=== PATIENT | male | born 1950 | race Caucasian/White ===

== ENCOUNTER 2020-07-09 08:53 | Inpatient (IN) ==
--- NOTE | 2020-06-16 14:13 | PAT Medication Instructions ---
Medication Instructions Date of Service June 16, 2020 Home Medications aspirin [Aspir-81] 81 mg PO PM atorvastatin 80 mg PO HS citalopram 40 mg PO QAM ezetimibe 10 mg PO HS lisinopril 20 mg PO PM metformin 500 mg PO BID methocarbamol 500 mg PO TID PRN metoprolol succinate 25 mg PO QAM omega-3 fatty acids [Fish Oil Concentrate] 1,000 mg PO QAM omeprazole 20 mg PO HS oxycodone 5 mg PO TID PRN pregabalin 100 mg PO TID quetiapine 25 mg PO BID tramadol 200 mg PO PM STOP taking 2 weeks before surgery omega-3 fatty acids [Fish Oil Concentrate] 1,000 mg PO QAM DO NOT take the morning of surgery metformin 500 mg PO BID methocarbamol 500 mg PO TID PRN Take morning of surgery With a small sip of water, OTHERWISE NOTHING TO EAT OR DRINK AFTER MIDNIGHT: citalopram 40 mg PO QAM metoprolol succinate 25 mg PO QAM oxycodone 5 mg PO TID PRN (okay to take up to 4 hours prior to surgery if needed) pregabalin 100 mg PO TID quetiapine 25 mg PO BID Take evening before surgery aspirin [Aspir-81] 81 mg PO PM atorvastatin 80 mg PO HS ezetimibe 10 mg PO HS lisinopril 20 mg PO PM metformin 500 mg PO BID methocarbamol 500 mg PO TID PRN (if needed) omeprazole 20 mg PO HS oxycodone 5 mg PO TID PRN (if needed) pregabalin 100 mg PO TID quetiapine 25 mg PO BID tramadol 200 mg PO PM Other Notes If you have any questions please call us at [phone] or [phone] or [phone] or [phone]
--- NOTE | 2020-06-17 11:43 | Anesthesiology Consultation ---
Date of Service June 17, 2020 Assessment & Plan (1) Encounter for pre-operative examination: COVID Status: As of 06/17 assessment, patient denies travel to endemic area, known exposure/sick contacts, or symptoms of COVID19. Patient instructed that they and their household members must follow strict social distancing guidelines, wear a mask in public and avoid travel/events/gatherings for 14 days prior to surgery. Preoperative COVID19 testing to be completed prior to surgery per surgeon's arrangements (07/05). Patient made aware to self-isolate as much as possible between COVID testing and surgery. Chart Review Chart Review: Acceptable Risk for Surgery (pending surgeon ordered pcp clearance 06/23 cardio clearance 07/01) and Patient NOT seen in Pre Admission Testing Teaching & Discussion Instructed NPO after midnight before surgery, except medications with 15 cc of water. Medication instructions provided according to the PAT guidelines. History Surgery Operation Date: 07/09/20 10:35 Proposed Procedures p L2-L4 Decompression, L2-S1 Revision Fusion, L5-S1 Hardware Removal, Spinal Cord Monitoring - Trey Mejia, Height/Weight Height: 5 ft 7 in Weight: 105.2 kg Allergies Allergy/AdvReac Type Severity Reaction Status Date / Time Penicillins Allergy Mild HIVES Verified 06/07/20 12:23 codeine Allergy Unknown NAUSEA Verified 06/07/20 12:23 WITH DENTAL WORK-HAD SWALLOWED BLOOD hydrochlorothiazide Allergy Unknown FLU LIKE Verified 06/07/20 12:23 SYMPTOMS Medications Home Medications Medication Instructions Recorded Confirmed Last Taken aspirin [Aspir-81] 81 mg PO PM 06/07/20 06/07/20 Unknown atorvastatin 80 mg PO HS 06/07/20 06/07/20 Unknown citalopram 40 mg PO QAM 06/07/20 06/07/20 Unknown ezetimibe 10 mg PO HS 06/07/20 06/07/20 Unknown lisinopril 20 mg PO PM 06/07/20 06/07/20 Unknown metformin 500 mg PO BID 06/07/20 06/07/20 Unknown methocarbamol 500 mg PO TID PRN 06/07/20 06/07/20 Unknown metoprolol succinate 25 mg PO QAM 06/07/20 06/07/20 Unknown omega-3 fatty acids [Fish Oil 1,000 mg PO QAM 06/07/20 06/07/20 Unknown Concentrate] omeprazole 20 mg PO HS 06/07/20 06/07/20 Unknown oxycodone 5 mg PO TID PRN 06/07/20 06/07/20 Unknown pregabalin 100 mg PO TID 06/07/20 06/07/20 Unknown quetiapine 25 mg PO BID 06/07/20 06/07/20 Unknown tramadol 200 mg PO PM 06/07/20 06/07/20 Unknown Past Medical History Medical History Anxiety Bradycardia Asymptomatic CAD (coronary artery disease) S/P CAGB x 2 1990, [place] 1992, CABG x [address] Christiano Atkins Depression Diabetes mellitus, type 2 NIDDM GERD (gastroesophageal reflux disease) Hyperlipidemia Hypertension Myocardial Infarction 1992 > angioplasty > [place] Exercise / Class Metabolic Activity III < 4 Walking/Shop/Light housework (Denies CP or SOB with ambulation, feels would not get CP but would have SOB with 1 FOS but has not done recently 2/2 back/leg pain) Past Family History Family History Mother Diabetes Grandmother Diabetes Past Surgical History Surgical History Fusion of spine X2 LUMBAR History of adenoidectomy History of appendectomy History of cardiac cath AUGUST 2018> NO STENTS History of cholecystectomy History of colonoscopy History of coronary artery bypass graft 1990 >2 vessels [place] 1998 >5 vessels [place] History of esophagogastroduodenoscopy (EGD) History of nasal septoplasty History of surgery on left wrist History of surgery on right wrist History of tonsillectomy History of tooth extraction History of total shoulder replacement LEFT Hx of fusion of cervical spine ROM WNL Hx of umbilical hernia repair Past Anesthesia History No Hx of Anesthesia Complications and No Family Hx of Anesthesia Complications History of PONV No Hx of PONV and Hx of Motion Sickness Social History Smoking Status: Former smoker Do You Dip or Chew Tobacco: No Smoking End Date: OVER 30 YRS AGO Hx Alcohol Use: Yes Alcohol type: beer alcohol intake frequency: a few times a month Hx Substance Use: No substance use type: does not use Review of Systems Pt denies any recent chest pain, shortness of breath, palpitations, cough, fever, URI, or uncontrolled acid reflux. Physical Exam Vital Signs BP: 142/87 P: 56bpm SPO2: 94% RA T: 98.4 F R: 16 ENMT Mouth: + dentures (full upper); no chipped teeth and no loose teeth Thyromental Distance: > or= 3.5 Finger Breadths Mallampati Class: III Neck + short neck, + thick neck and + facial hair (very short goatee); neck extension not limited Respiratory normal respiratory effort, lungs clear to auscultation Cardiovascular Rate/Rhythm: regular rhythm and + bradycardic Heart Sounds: no murmur Vessels: no carotid bruit Testing Laboratory Results PT 10.4 Seconds (9.0-12.0) 06/17/20 12:01 INR 1.0 (0.9-1.1) 06/17/20 12:01 APTT 26.1 Seconds (21.0-31.0) 06/17/20 12:01 Urine Color Yellow 06/17/20 Unknown Urine Appearance Clear (Clear) 06/17/20 Unknown Urine pH 7.0 (4.5-7.5) 06/17/20 Unknown Ur Specific [place] 1.017 (1.000-1.030) 06/17/20 Unknown Urine Protein Negative (Negative) 06/17/20 Unknown Urine Glucose (UA) Negative (Negative) 06/17/20 Unknown Urine Ketones Negative (Negative) 06/17/20 Unknown Urine Nitrite Negative (Negative) 06/17/20 Unknown Ur Leukocyte Esterase Negative (Negative) 06/17/20 Unknown Blood Type A Positive 06/17/20 12:01 Antibody Screen NEGATIVE 06/17/20 12:01 06/01/20 WBC: 6.57 H/H: 13.7/42.6 PLATELETS: 206 SODIUM: 139 POTASSIUM: 4.8 CHLORIDE: 101 CO2: 27 BUN: 12 CREATININE: 1.0 GLUCOSE: 118 A1C: 6.7% Electrocardiogram Date: 06/17/20 Findings: + SB @ (57bpm) Incomplete right bundle branch block. Possible anterior infarct, age undetermined. ST and T wave abnormality, consider anterior ischemia. Compared with EKG of 08/05/2014, QT has lengthened. *T wave inversion in anterolateral leads is chronic, also present on 09/2018 EKG from [facility] done prior to cardiac cath. Chest X-Ray Date: 06/17/20 FINDINGS: PA and lateral chest radiographs are compared to study dated 08/05/2014. The patient is status post midline sternotomy. The heart is enlarged noting atherosclerotic calcification of the thoracic aorta. The pulmonary vasculature is noncongested. Chronic interstitial thickening is similar to previous. No airspace consolidation or pleural effusion is identified. There is no pneumot horax. The bony thorax appears intact. Fusion hardware is noted in the lower cervical spine. A left shoulder arthroplasty is in place. Cholecystectomy clips are seen in the right upper quadrant. IMPRESSION: Cardiomegaly with no active disease in the chest. Stress Test Date: 10/09/18 Type: DSE Resting EF: 60-64% Positive dobutamine stress echo and EKG for ischemia at 102% maximal predicted heart rate. There are multiple regional wall motion abnormalities at peak stress. Mild concentric LVH. Normal resting left ventricular wall motion. Grade 1 diastolic dysfunction of the left ventricle. Mild aortic valve sclerosis with no stenosis. Mild to moderate mitral regurgitation. Mild to moderate tricuspid regurgitation. *subsequent cardiac cath Cardiac Catheterization Date: 10/31/18 No lesions that would benefit from PCI or 3rd CABG. Complete revascularization is impossible due to 100% occlusion of several small branches. Potential areas of ischemia include moderate first LAD-septal, 2nd diagonal (moderate size), RCA-PL#1, and very distal apical LAD 100%. In summary, LAD 100% prox with good BOWEN=>LAD except septal, diagonal, and small apical LAD are all 100%. LCx is good except 100% OM1 which has good radial graft. RCA 80% but SVG=>RCA is good with only small PL1 branch 100%. Systolic pressure low (85-96mm) throughout the case. LVEDP 19 mm (mildly elevated) LAD-1st diagonal is large and has 70% stenosis, but FFR is .89 and therefore not hemodynamically significant.
--- NOTE | 2020-06-17 12:56 | XRay Report ---
TWO VIEW CHEST CLINICAL HISTORY: Preoperative examination. FINDINGS: PA and lateral chest radiographs are compared to study dated 08/05/2014. The patient is statu s post midline sternotomy. The heart is enlarged noting atherosclerotic calcification of the thoracic aorta. The pulmonary vasculature is noncongested. Chronic interstitial thickening is similar to prev ious. No airspace consolidation or pleural effusion is identified. There is no pneumothorax. The bony thorax appears intact. Fusion hardware is noted in the lower cervical spine. A left shoulder arthrop lasty is in place. Cholecystectomy clips are seen in the right upper quadrant. IMPRESSION: Cardiomegaly with no active disease in the chest. ACT 112: Negative or not required by law. Electronically signed by: Oren Ellis M.D. 06/17/2020 12:54 PM
[2020-06-17 13:26] LABS: Appearance Urine Clear (Clear); Bilirubin Urine Negative (Negative); Blood Urine Negative (Negative); Color Urine Yellow; Glucose Urine UA Negative (Negative); Ketones Urine Negative (Negative); Leukocyte Esterase Urine Negative (Negative); Nitrite Urine Negative (Negative); Protein Urine Negative (Negative); Specific Gravity Urine 1.017 (1.000-1.030); Urobilinogen Urine Negative (Negative)
[2020-06-17 13:45] LABS: Partial Thromboplastin Time 26.1 Seconds (21.0-31.0); Prothrombin Time 10.4 Seconds (9.0-12.0)
--- NOTE | 2020-06-18 06:08 | Electrocardiogram Report ---
Test Reason : Blood Pressure : / mmHG Vent. Rate : 057 BPM Atrial Rate : 057 BPM P-R Int : 180 ms QRS Dur : 106 ms QT Int : 468 ms P-R-T Axes : 053 071 094 degrees QTc Int : 455 ms Sinus bradycardia Incomplete right bundle branch block Possible Anterior infarct , age undetermined Abnormal ECG When compared with ECG of 05-AUG-2014 11:52, QT has lengthened Confirmed by Marcello Guzman ([id number]) on 06/18/2020 6:08:13 AM Referred By: Trey Mejia Confirmed By:Marcello Guzman
[~2020-07-09 08:53] MED LIST: CLINDAMYCIN 600 MG/54 ML BAG IV SCH; CeleBREX 200 MG CAP PO SCH; GABAPENTIN 300 MG CAP PO SCH; LR 15ML/HR IV SCH; MIDAZOLAM HCL 1 MG/ML 2ML VIAL ONE; fentaNYL citrate 100 MCG/2 ML VIAL ONE
[2020-07-09] MEDS ORDERED: ePHEDrine sulfate 50 MG/ML AMP IV PRN (09:31)
[2020-07-09] MEDS ORDERED: ONDANSETRON INJ 2 MG/ML 2 ML VIAL IV PRN ×2 (09:31→14:49)
[2020-07-09] MEDS ORDERED: ATROPINE SULFATE 0.1 MG/ML 10ML SYR IV PRN (09:31)
[2020-07-09] MEDS: ACETAMINOPHEN 500 MG TAB PO SCH ×2 (09:35→09:36)
--- NOTE | 2020-07-09 10:47 | History & Physical Bridge Note ---
Date of Service July 09, 2020 History & Physical Bridge Note I have examined the patient, reviewed the History & Physical and in the interval since the performance of the History & Physical I have noted the following changes of clinical significance: no changes noted
--- NOTE | 2020-07-09 10:48 | History & Physical Report ---
Date of Service July 09, 2020 Assessment & Plan (1) Neurogenic claudication due to lumbar spinal stenosis: Admission and Anticipated Discharge Date Admission Date: L2-L4 decompression, L2-S1 revision fusion, L5-S1 hardware removal History of Present Illness Chief Complaint: Back and bilateral leg pain Primary Care Provider: Santhosh Demarco DO This is a 70-year-old male well-known to me the presents with chronic worsening consistent back and bilateral leg pain. After failing course of nonoperative care is here for surgical invention. Allergies Allergy/AdvReac Type Severity Reaction Status Date / Time Penicillins Allergy Mild HIVES Verified 07/09/20 09:43 codeine Allergy Unknown NAUSEA Verified 07/09/20 09:43 WITH DENTAL WORK-HAD SWALLOWED BLOOD hydrochlorothiazide Allergy Unknown FLU LIKE Verified 07/09/20 09:43 SYMPTOMS Home Medications Medication Instructions Recorded Confirmed Type aspirin [Aspir-81] 81 mg PO PM 06/07/20 07/09/20 History atorvastatin 80 mg PO HS 06/07/20 07/09/20 History citalopram 40 mg PO QAM 06/07/20 07/09/20 History ezetimibe 10 mg PO HS 06/07/20 07/09/20 History lisinopril 20 mg PO PM 06/07/20 07/09/20 History metformin 500 mg PO BID 06/07/20 07/09/20 History methocarbamol 500 mg PO TID PRN 06/07/20 07/09/20 History metoprolol succinate 25 mg PO QAM 06/07/20 07/09/20 History omega-3 fatty acids [Fish Oil 1,000 mg PO QAM 06/07/20 07/09/20 History Concentrate] omeprazole 20 mg PO HS 06/07/20 07/09/20 History oxycodone 5 mg PO TID PRN 06/07/20 07/09/20 History pregabalin 100 mg PO TID 06/07/20 07/09/20 History quetiapine 25 mg PO BID 06/07/20 07/09/20 History tramadol 200 mg PO PM 06/07/20 07/09/20 History Past Med/Surg History Medical History Anxiety Bradycardia Asymptomatic CAD (coronary artery disease) S/P CAGB x 2 1990, [place] 1992, CABG x [address] Christiano Atkins Depression Diabetes mellitus, type 2 NIDDM GERD (gastroesophageal reflux disease) Hyperlipidemia Hypertension Myocardial Infarction 1992 > angioplasty > [place] Surgical History Fusion of spine X2 LUMBAR History of adenoidectomy History of appendectomy History of cardiac cath AUGUST 2018> NO STENTS History of cholecystectomy History of colonoscopy History of coronary artery bypass graft 1990 >2 vessels [place] 1998 >5 vessels [place] History of esophagogastroduodenoscopy (EGD) History of nasal septoplasty History of surgery on left wrist History of surgery on right wrist History of tonsillectomy History of tooth extraction History of total shoulder replacement LEFT Hx of fusion of cervical spine ROM WNL Hx of umbilical hernia repair Family History Mother Diabetes Grandmother Diabetes Social History Smoking Status: Former smoker Smoking End Date: OVER 30 YRS AGO; Second Hand Exposure: No; Do You Dip or Chew Tobacco: No; Tobacco Cessation Education Requested by Patient: No Hx Alcohol Use: Yes Alcohol type: beer Hx Substance Use: No Preferred Language: Burkinan Communication Ability: Effective 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
[2020-07-09] MEDS ORDERED: BACITRACIN INJ 50,000 UNIT VIAL ONE (11:05)
[2020-07-09] MEDS ORDERED: BUPIVACAINE/EPINEPHRINE 0.5% MPF 1:200,000 30 ML VIAL ONE (11:05)
[2020-07-09] MEDS ORDERED: ALBUMIN HUMAN 5% 12.5 GM/250 ML VIAL IV ONE (11:13)
[2020-07-09] MEDS ORDERED: KETAMINE 50 MG/5 ML SYRINGE ONE (12:17)
[2020-07-09] MEDS ORDERED: FLOSEAL HEMOSTATIC MATRIX 10ML TOP ONE (13:01)
[2020-07-09] MEDS ORDERED: PHENYLEPHRINE 100MCG/ML 5ML SYR ONE (13:09)
[2020-07-09] MEDS ORDERED: DEXAMETHASONE SOD INJ 4 MG/ML VIAL ONE (13:09)
[2020-07-09] MEDS ORDERED: ROCURONIUM BROMIDE 10 MG/ML 5 ML VIAL IV ONE (13:09)
[2020-07-09] MEDS ORDERED: LARYING-O-JET KIT (LTA) ONE (13:09)
[2020-07-09] MEDS ORDERED: ePHEDrine sulfate 50 MG/ML SYR ONE (13:09)
[2020-07-09] MEDS ORDERED: NEOSTIGMINE METHYLSULFATE 1 MG/ML 10ML VIAL ONE (13:09)
[2020-07-09] MEDS ORDERED: GLYCOPYRROLATE 0.2 MG/ML VIAL ONE (13:09)
[2020-07-09] MEDS ORDERED: ONDANSETRON INJ 2 MG/ML 2 ML VIAL ONE (13:09)
[2020-07-09] MEDS ORDERED: LIDOCAINE HCL 2% 2 ML VIAL/AMP(20MG/ML) INFIL ONE (13:09)
[2020-07-09] MEDS ORDERED: PROPOFOL IV EMULSION 10 MG/ML 20 ML VIAL IV ONE (13:09)
--- NOTE | 2020-07-09 13:12 | Operative Report ---
Post Operative Report Pre & Post Diagnosis Operation Date: 07/09/20 10:35 Pre-Op Diagnosis: Lumbar spinal stenosis with radiculopathy Post-Op Diagnosis: Same I identified the patient and participated in the time-out.: Yes Procedure Operation Date: 07/09/20 10:35 Actual Procedures #1 lumbar decompression with bilateral medial facetectomies and foraminotomies L1-2, L2-3 and L3-4. #2 posterior spinal fusion L2-3 L3-4. #3 placement posterior instrumentation L2-3 L3-4. #4 interbody fusion L3-4. #5 placement of peek cage 13 x 26 mm at L3-L4. #6 placement of I factor in the interbody space and posterior gutters. #7 placement locally harvested morselized autograft in the posterior lateral gutters. Surgeon Trey Mejia, DO Client Advisor Pancho Tee Estimated Blood Loss 300 Findings See Below The patient is 5 foot 6 inches tall weighing over 106 kg with a BMI in excess of 37. Patient's body habitus did create significant technical difficulty requiring her deepest retractors longus instruments in order to perform his procedure. This had at least 50% increase to the operative time. Specimens None Indications This is a 70-year-old male known to me the presents with above-mentioned diagnosis after failing course of nonoperative care is here for the above- mentioned procedure. Description of Procedure Patient was met with identified informed consent obtained. Patient was then taken to the operative suite underwent an patient placed in a prone position the Cash table top Corky frame. All bony prominences well-padded eyes inspected to ensure no external pressure placed upon the. This point the lumbar spine was prepped and draped in a sterile fashion. Sharp dissection with assistance pericardial performed down to and exposing the lamina and transverse processes of L2-L3-L4 bilaterally. I did elect to maintain the previous instrumentation and avoid excessive blood loss in light of his health history. I did perform a complete laminectomy of L3 L2 and partial laminectomy of L1 including bilateral medial facetectomies and foraminotomies addressing all spinal stenosis. Pedicle screw was then placed in L2-L3-L4 bilaterally with assistance of fluoroscopy the proper sized sravani placed. By way of transforaminal approach on right a complete discectomy of L3.4 was performed and the endplates curetted to subcortical being bone and a 13 x 26 mm peek cage filled with I factor was then tapped in position. The rods were then locked into final position bilaterally. The transverse processes of L2-L3-L4 burred to subcortically bone. I factor and locally harvested morselized autograft was then placed in the posterior gutters. 15 round JOSE drain inserted. The incision was then closed with 1 Vicryl the fascia 2-0 Vicryl subcutaneously and 4 Monocryl for final skin closure. Steri- Strip sterile dressings placed. Patient will continue PACU stable condition. Please note spinal cord monitoring visualized at the procedure no changes noted. Lastly Pancho ott was present at the entire surgery involved the patient positioning complex portions of the surgery and final skin closure. I attest to the content of the Intraoperative Record and any orders documented therein. Any exceptions are noted below.
--- NOTE | 2020-07-09 13:46 | Fluoroscopy Report ---
INTRAOPERATIVE RADIOGRAPHS CLINICAL HISTORY: Lumbar spinal fusion. Hardware removal. Fluoroscopy time: 29 seconds. FINDINGS: 3 spot fluoroscopic views of the lumbar spine are obtained. There has been discectomy at L3 -L4, L4-L5, and L5-S1. There is evidence of laminectomy and posterior fusion seen from L2-S1. Interpe dicular screws are present at all levels. The orthopedic hardware appears intact. IMPRESSION: Intraoperative images from lumbar spinal fusion surgery as above. Electronically signed by: Oren Ellis M.D. 07/09/2020 1:45 PM
[2020-07-09] MEDS: fentaNYL citrate 100 MCG/2 ML VIAL IV PRN ×3 (14:00→14:25)
--- NOTE | 2020-07-09 14:16 | Anesthesiology Progress Note ---
Date of Service July 09, 2020 Anesthesia Post Procedure Vital Signs Vital Signs: Temp Pulse Pulse Resp BP Pulse Ox 07/09/20 14:10 36.8 C 73 23 135/69 92 07/09/20 14:00 66 19 161/82 H 98 07/09/20 13:50 68 16 153/90 H 98 07/09/20 13:40 74 21 158/86 H 100 07/09/20 13:33 37.2 C 85 21 146/101 H 100 07/09/20 09:55 36.7 C 56 L 18 158/98 H 96 Pain Intensity Back: Pain Intensity: 4 Transfer of Care Handoff Completed per policy Notes Mental Status: alert / awake / arousable and participated in evaluation Patient Amnestic to Procedure: Yes Nausea / Vomiting: adequately controlled Pain: adequately controlled Airway Patency, RR, SpO2: stable & adequate BP & HR: stable & adequate Hydration State: stable & adequate Anesthetic Complications: no major complications apparent and Pt Satisfied with anesthetic care
[2020-07-09] MEDS ORDERED: DO NOT ADMINISTER FLU VACCINE PRN (14:49)
[2020-07-09] MEDS ORDERED: FAMOTIDINE 20 MG TAB PO PRN (14:49)
[2020-07-09] MEDS ORDERED: METOCLOPRAMIDE HCL INJ 5 MG/ML 2 ML VIAL IV PRN (14:49)
[2020-07-09] MEDS ORDERED: ACETAMINOPHEN 1,000 MG/100 ML VIAL IV PRN (14:49)
[2020-07-09] MEDS ORDERED: ONDANSETRON 4 MG OD TAB PO PRN (14:49)
[2020-07-09] MEDS ORDERED: bisacodyL 10 MG SUPP PR PRN (14:49)
[2020-07-09] MEDS ORDERED: diphenhydrAMINE Capsule 25 MG CAP PO PRN (14:49)
[2020-07-09] MEDS ORDERED: ACETAMINOPHEN 500 MG TAB PO PRN (14:49)
[2020-07-09] MEDS ORDERED: NALOXONE HCL 0.4 MG/1 ML VIAL/CARP IV PRN (14:49)
[2020-07-09] MEDS ORDERED: traMADol HCL 50 MG TABLET PO PRN (14:49)
[2020-07-09] MEDS ORDERED: PROMETHAZINE HCL 12.5 MG in SODIUM CHLORIDE 0.9% 50 ML IV PRN (14:49)
[2020-07-09] MEDS ORDERED: hydrOXYzine HCl 25 MG TAB PO PRN (14:49)
[2020-07-09] MEDS ORDERED: LORazepam 0.5 MG/1 ML VIAL IV PRN (14:49)
[2020-07-09] MEDS ORDERED: SOD PHOSPHATE/SOD BIPHOSPHATE ENEMA 132 ML BTL PR PRN (14:49)
[2020-07-09] MEDS ORDERED: DO NOT ADMINISTER PNEUMOCOCCAL VACCINE PRN (14:49)
[2020-07-09] MEDS ORDERED: ALUMINUM/MAGNESIUM SUSP 30 ML UDC PO PRN (14:49)
[2020-07-09] MEDS ORDERED: LORazepam 0.5 MG TAB PO PRN (14:49)
[2020-07-09] MEDS ORDERED: MAGNESIUM HYDROXIDE SUSP 30 ML UDC PO PRN (14:49)
[2020-07-09] MEDS ORDERED: PHARMACY GLYCEMIC MGMT CONSULT PRN (15:32)
--- NOTE | 2020-07-09 15:39 | Consultation ---
Date of Consultation July 09, 2020 Assessment & Plan (1) Status post lumbar surgery: Post op day# 0 S/P L1-L4 decompression & fusion by Dr Jackie PUENTES#300ml Post op doing well -pain management per ortho -wound management per ortho -PT/OT as appropriate -DVT prophylaxis per ortho -incentive spirometry -monitor H&H for acute blood loss anemia; pre-op Hgb: 13.7 (2) CAD (coronary artery disease): S/P CABG No CP, SOB -Continue metoprolol, aspirin, statin (3) Hypertension: BP stable -Continue metoprolol, lisinopril with holding parameters (4) Diabetes mellitus, type 2: A1c: 6.7 on 06/01/20 -Hold metformin -Novolog sliding scale, Glycemic pharmacist on board, appreciate managment (5) Bipolar disorder: -Continue citalopram, seroquel (6) GERD (gastroesophageal reflux disease): -continue PPI DVT Prophylaxis -SCDs per ortho Disposition per primary service Follows with Dr Bray for routine care Pt was seen and care coordinated with Dr Farrell. See addendum Pt will be followed by Dr Luna starting 07/10/20 Thank you for this consultation. We will follow the patient with you during their hospital stay. You [facility] via pager @ [phone]. Supervising Physician Co-Signing Physician Notes Care coordinated with Melissa Giron PA-C. Agree with above note. Patient seen and examined. Please refer to her notes for full details. Vital signs reviewed. Physical exam: General exam: Alert and oriented. Not in acute distress. CVS: S1 and S2 heard, regular rate and rhythm, no murmurs. RS: Clear to auscultation, no wheezing or crackles. ABD: Soft, bowel sounds present, nontender, no distention. BALLISTICIAN: Nonfocal. Musculoskeletal: s/p back surgery EXT: No edema, no erythema. Labs: Reviewed. Assessment and plan:70M with hx of cad, htn , diabetes , bipolar disorder s/p back surgery. s/p Back surgery tolerated procedure fine further management as per ortho hx of cad s/p cabg on asa, statin, b arie stable hx of DM hold po meds iss will onitor HTn lmetoprolol. Lisinopril to be resumed in am if labs ok. monitor blood pressure. Other diagnosis and plan of care as per []. Kirit florence MD. History of Present Illness Requesting Physician: Dr Mejia Reason for Consultation: Post op medical management Attending Physician: Trey Mejia DO History of Present Illness Pt is 70 y/o M with PMH CAD s/p CABG, HTN, HLD, DM II, Bipolar disorder, GERD seen in medical consultation s/p L1-L4 decompression and fusion today by Dr Mejia. Post op pt reports some back pain, but overall doing well. Denies significant leg pain, leg paresthesias, nausea, vomiting, HALE, dizziness, CP or SOB. Reports last BM yesterday. Denies fever/chills, diaphoresis, neck pain, palpitations, cough, sore throat, rhinorrhea, abdominal pain, extremity edema, rashes, urinary symptoms. Allergies Allergy/AdvReac Type Severity Reaction Status Date / Time Penicillins Allergy Mild HIVES Verified 07/09/20 09:43 codeine Allergy Unknown NAUSEA Verified 07/09/20 09:43 WITH DENTAL WORK-HAD SWALLOWED BLOOD hydrochlorothiazide Allergy Unknown FLU LIKE Verified 07/09/20 09:43 SYMPTOMS Home Medications Medication Instructions Recorded Confirmed Type aspirin [Aspir-81] 81 mg PO PM 06/07/20 07/09/20 History atorvastatin 80 mg PO HS 06/07/20 07/09/20 History citalopram 40 mg PO QAM 06/07/20 07/09/20 History ezetimibe 10 mg PO HS 06/07/20 07/09/20 History lisinopril 20 mg PO PM 06/07/20 07/09/20 History metformin 500 mg PO BID 06/07/20 07/09/20 History methocarbamol 500 mg PO TID PRN 06/07/20 07/09/20 History metoprolol succinate 25 mg PO QAM 06/07/20 07/09/20 History omega-3 fatty acids [Fish Oil 1,000 mg PO QAM 06/07/20 07/09/20 History Concentrate] omeprazole 20 mg PO HS 06/07/20 07/09/20 History oxycodone 5 mg PO TID PRN 06/07/20 07/09/20 History pregabalin 100 mg PO TID 06/07/20 07/09/20 History quetiapine 25 mg PO BID 06/07/20 07/09/20 History tramadol 200 mg PO PM 06/07/20 07/09/20 History Patient History Medical History (Updated 07/09/20 @ 16:12 by Melissa Giron PA-C) Anxiety Bipolar disorder Bradycardia Asymptomatic CAD (coronary artery disease) S/P CAGB x 2 1990, RI 1992, CABG x [address] Christiano Atkins Depression Diabetes mellitus, type 2 NIDDM GERD (gastroesophageal reflux disease) Hyperlipidemia Hypertension Myocardial Infarction 1992 > angioplasty > [place] Obesity Surgical History (Updated 07/09/20 @ 16:12 by Melissa Giron PA-C) Fusion of spine X2 LUMBAR History of adenoidectomy History of appendectomy History of cardiac cath AUGUST 2018> NO STENTS History of cholecystectomy History of colonoscopy History of coronary artery bypass graft 1990 >2 vessels [place] 1998 >5 vessels [place] History of esophagogastroduodenoscopy (EGD) History of nasal septoplasty History of surgery on left wrist History of surgery on right wrist History of tonsillectomy History of tooth extraction History of total shoulder replacement LEFT Hx of fusion of cervical spine ROM WNL Hx of umbilical hernia repair Family History Mother Diabetes Grandmother Diabetes Social History Smoking Status: Former smoker Smoking End Date: OVER 30 YRS AGO; Second Hand Exposure: No; Do You Dip or Chew Tobacco: No; Tobacco Cessation Education Requested by Patient: No Hx Alcohol Use: Yes Alcohol type: beer Hx Substance Use: No Preferred Language: Maltese Communication Ability: Effective Metal Ceiling Builder Required: No Beliefs That Will Affect Care: None Current Living Situation: Spouse Other Information That Helps Us Care for You: No Feels Safe at Home: Yes Safety Concerns: Feels Safe At This Time Assistive Devices: Denture - Upper and Glasses Review of Systems Review of Systems: All systems reviewed & are unremarkable except as noted in HPI & below Physical Exam Physical Exam: General: no distress, obese Head: normocephalic, atraumatic Eyes: conjunctiva non-injected, anicteric ENT: normal inspection external ears, nose, mucous membranes moist Neck: supple, trachea midline Lungs: clear, no respiratory distress, no wheezing/rhonchi/rales CV: RRR, no murmur, no pretibial edema Abd: normal BS, soft, non-tender Back: surgical dressing in place, dry; JOSE drain with serosanguineous drainage Ext: no calf tenderness, BLE: sensation to light touch intact, distal pulses intact, pedal pushes and pulls intact bilaterally Neuro: A&O x 3, no focal deficits noted, normal affect Skin: warm, dry Results & Data ([facility]) Vital Signs (Past 12 Hours) Vital Signs Temp Pulse Pulse Pulse Resp BP BP 07/09/20 15:15 36.8 C 72 72 H 121/79 07/09/20 14:45 36.9 C 69 17 148/84 H 07/09/20 14:40 71 15 157/89 H 07/09/20 14:30 69 17 137/65 07/09/20 14:20 67 13 155/89 H 07/09/20 14:10 36.8 C 73 23 135/69 07/09/20 14:00 66 19 161/82 H 07/09/20 13:50 68 16 153/90 H 07/09/20 13:40 74 21 158/86 H 07/09/20 13:33 37.2 C 85 21 146/101 H 07/09/20 09:55 36.7 C 56 L 18 158/98 H Pulse Ox 07/09/20 15:15 95 07/09/20 14:45 96 07/09/20 14:40 96 07/09/20 14:30 98 07/09/20 14:20 99 07/09/20 14:10 92 07/09/20 14:00 98 07/09/20 13:50 98 07/09/20 13:40 100 07/09/20 13:33 100 07/09/20 09:55 96
[2020-07-09] MEDS: SODIUM CHLORIDE 0.9% 1000ML 1,000 ML IV SCH ×2 (15:41→21:56)
[2020-07-09] MEDS ORDERED: GLUCOSE 40% GEL 15 GM TUBE PO PRN (16:15)
[2020-07-09] MEDS ORDERED: GLUCAGON FOR INJ 1 MG VIAL IM PRN (16:15)
[2020-07-09] MEDS ORDERED: DEXTROSE 50% 50 ML SYRINGE IV PRN (16:15)
[2020-07-09] MEDS ORDERED: CARBOHYDRATES FOR HYPOGLYCEMIA PO PRN (16:15)
[2020-07-09] MEDS ORDERED: GLUCOSE 10 TABS/TUBE PO PRN (16:15)
[2020-07-09] MEDS: oxyCODONE HCL IR 5 MG TAB (IMMEDIATE RELEASE) PO PRN ×2 (16:28→21:01)
[2020-07-09] MEDS: PREGABALIN 100 MG CAP PO SCH ×2 (16:28→20:16)
[2020-07-09] MEDS: INSULIN ASPART 100 UNITS/ML 3 ML PEN SC SCH ×2 (18:11→21:39)
[2020-07-09] MEDS: HYDROmorphone INJ 1 MG/ML SYRINGE IV PRN (19:19)
[2020-07-09] MEDS: CLINDAMYCIN 600 MG in DEXTROSE 5% 50 ML IV SCH (20:16)
[2020-07-09] MEDS: QUEtiapine FUMARATE 25 MG TABLET PO SCH (20:16)
[2020-07-09] MEDS: ASPIRIN 81 MG ECTAB PO SCH (20:17)
[2020-07-09] MEDS: ATORVASTATIN 40 MG TAB PO SCH (20:17)
[2020-07-09] MEDS: EZETIMIBE 10 MG TABLET PO SCH (20:18)
[2020-07-09] MEDS: DOCUSATE SODIUM/SENNA 50/8.6MG TAB PO SCH (20:19)
[2020-07-09] MEDS: lisinopril 20 MG TAB PO SCH (20:19)
[2020-07-09] MEDS: PANTOprazole 40 MG TAB PO SCH (20:19)
[2020-07-10] MEDS: HYDROmorphone INJ 1 MG/ML SYRINGE IV PRN (00:21)
[2020-07-10] MEDS: oxyCODONE HCL IR 5 MG TAB (IMMEDIATE RELEASE) PO PRN ×6 (02:48→23:59)
[2020-07-10] MEDS: METHOCARBAMOL 500 MG TABLET PO PRN ×3 (02:50→20:49)
[2020-07-10] MEDS: CLINDAMYCIN 600 MG in DEXTROSE 5% 50 ML IV SCH (03:49)
[2020-07-10] MEDS: SODIUM CHLORIDE 0.9% 1000ML 1,000 ML IV SCH (05:26)
[2020-07-10] MEDS: POLYETHYLENE (MIRALAX) 17 GM PACK PO SCH ×3 (05:36→16:47)
[2020-07-10] MEDS: HYDROmorphone INJ 0.5 MG/0.5 ML SYR IV PRN ×2 (05:38→21:22)
[2020-07-10 05:48] LABS: Hematocrit (blood only) 35.1 % (42-52); Hemoglobin 11.6 g/dL (14.0-18.0); Immature Granulocytes # (auto) 0.02 K/uL (0.00-0.02); Immature Granulocytes % (auto) 0.2 %; Lymphocytes # (auto) 1.15 K/uL (1.2-3.4); Lymphocytes % (auto) 9.2 %; Mean Corpuscular Volume 90.7 fL (80-100); Mean Platelet Volume 10.8 fL (7.4-10.4); Monocytes % (auto) 6.4 %; Neutrophils # (auto) 10.52 K/uL (1.4-6.5); Neutrophils % (auto) 84.2 %; Platelet Count 178 K/uL (130-400); RDW Coefficient of Variation 14.5 % (11.5-14.5); RDW Standard Deviation 48.4 fL (36.4-46.3); Red Blood Count 3.87 M/uL (4.7-6.1); White Blood Count 12.49 K/uL (4.8-10.8)
[2020-07-10 06:16] LABS: BUN Creatinine Ratio 14.5 (10-20); Calcium 7.8 mg/dl (8.5-10.1); Creatinine Clr Calc Pharmacy 93.2 ml/min; Est GFR (African American) 102.6; Est GFR (Non-African American) 88.5; Potassium 4.9 mmol/L (3.5-5.1)
[2020-07-10 07:19] LABS: Estimated Average Glucose 143 mg/dl; Hemoglobin A1C 6.6 % (4.5-5.6)
--- NOTE | 2020-07-10 08:35 | Orthopedic Progress Note ---
Date of Service July 10, 2020 Assessment & Plan (1) Neurogenic claudication due to lumbar spinal stenosis: Admission and Anticipated Discharge Date Admission Date: July 09, 2020 At this time we will continue physical therapy monitor his JOSE operatively discharge home Sunday. Subjective Back pain controlled leg pain improved Physical Exam Physical Exam: Patient is strength testing appears comfortable. Results & Data ([facility]) Vital Signs (Past 12 Hours) Vital Signs Temp Pulse Resp BP Pulse Ox 07/10/20 07:21 36.9 C 64 16 121/68 94 07/10/20 03:07 37.1 C 64 18 121/77 93 07/09/20 21:48 37.0 C 65 16 107/66 91
[2020-07-10] MEDS: INSULIN ASPART 100 UNITS/ML 3 ML PEN SC SCH ×4 (08:57→21:32)
[2020-07-10] MEDS: METOPROLOL SUCC 25MG EXT REL TAB PO SCH (08:58)
[2020-07-10] MEDS: QUEtiapine FUMARATE 25 MG TABLET PO SCH ×2 (08:59→20:48)
[2020-07-10] MEDS: CITALOPRAM 40 MG TAB PO SCH (08:59)
[2020-07-10] MEDS: dexAMETHasone 8 MG in SYRINGE 0 ML IV SCH (09:36)
[2020-07-10] MEDS: PREGABALIN 100 MG CAP PO SCH ×3 (09:36→20:47)
--- NOTE | 2020-07-10 18:42 | Hospitalist Progress Note ---
Date of Service July 10, 2020 Assessment & Plan (1) Status post lumbar surgery: Lumbar spinal stenosis with radiculopathy S/P L1-L4 decompression & fusion by Dr Mejia POD #1 Acute blood loss anemia-- Expected Pain control, activity, wound care as per primary team Monitor CBC for postop anemia Continue bowel regimen to prevent constipation Incentive spirometry DVT prophylaxis as per Ortho Mild leukocytosis likely expected postop No indication for transfusion currently (2) CAD (coronary artery disease): S/P CABG Continue metoprolol, aspirin, statin (3) Hypertension: BP stable Continue metoprolol, lisinopril (4) Diabetes mellitus, type 2: A1c: 6.6 Hold metformin Continue insulin therapy while hospitalized Glycemic pharmacist on board Monitor BGs (5) Bipolar disorder: Continue citalopram, seroquel (6) GERD (gastroesophageal reflux disease): continue PPI DVT Px: As per Ortho Code Status Full Code Thank you for this consultation. We will follow the patient with you during their hospital stay. You can reach a member of the [facility] Hospitalist Team 23/10 via pager @ [phone]. Admission and Anticipated Discharge Date Admission Date: July 09, 2020 Subjective Patient is seen and examined at bedside Back pain at surgical site is controlled Denies chest pain, shortness of breath, dizziness, nausea, abdominal pain offers no other complaints No BM today Review of Systems Review of Systems: All systems reviewed & are unremarkable except as noted in HPI & below Physical Exam Physical Exam: Physical Exam: Vitals signs as noted above General Appearance:Obese, no apparent distress Head: normocephalic, Atraumatic Eyes: normal inspection, EOMI Neck: supple, Trachea midline Respiratory/Chest: Normal breath sounds, CTA Cardiovascular: S1, S2, No murmur Abdomen/GI:Soft, Non tender, Bowel sounds present Back: Surgical site in dressing,+ drain Extremities/Musculoskeletal:normal inspection, no edema Neurologic/Psych:AAOX3, grossly no focal neurological deficits Skin: normal color, warm Results & Data Results & Data ([facility]) Vital Signs (Past 12 Hours) Vital Signs Temp Pulse Resp BP Pulse Ox 07/10/20 15:14 37.0 C 63 16 115/72 93 07/10/20 07:21 36.9 C 64 16 121/68 94 Laboratory Results Short CBC 07/10/20 Range/Units 05:24 WBC 12.49 H (4.8-10.8) K/uL Hgb 11.6 L (14.0-18.0) g/dL Hct 35.1 L (42-52) % Plt Count 178 (130-400) K/uL [facility] [place] 07/10/20 05:24 Sodium 137 Potassium 4.9 Chloride 106 Carbon Dioxide 28 BUN 12 Creatinine 0.83 Glucose 148 H Calcium 7.8 L
[2020-07-10] MEDS: PANTOprazole 40 MG TAB PO SCH (20:47)
[2020-07-10] MEDS: ASPIRIN 81 MG ECTAB PO SCH (20:47)
[2020-07-10] MEDS: EZETIMIBE 10 MG TABLET PO SCH (20:48)
[2020-07-10] MEDS: lisinopril 20 MG TAB PO SCH (20:49)
[2020-07-10] MEDS: DOCUSATE SODIUM/SENNA 50/8.6MG TAB PO SCH (20:49)
[2020-07-10] MEDS: ATORVASTATIN 40 MG TAB PO SCH (20:49)
[2020-07-10] MEDS: LANTUS PER UNIT CHARGE SQ SCH (21:33)
[2020-07-11] MEDS: POLYETHYLENE (MIRALAX) 17 GM PACK PO SCH ×4 (00:23→16:51)
[2020-07-11] MEDS: oxyCODONE HCL IR 5 MG TAB (IMMEDIATE RELEASE) PO PRN ×5 (05:36→23:58)
[2020-07-11 06:12] LABS: Hematocrit (blood only) 37.8 % (42-52); Hemoglobin 12.5 g/dL (14.0-18.0); Mean Corpuscular Hemoglobin 30.3 pg (25-34); Mean Corpuscular Hgb Conc 33.1 g/dL (32-36); Mean Corpuscular Volume 91.5 fL (80-100); Platelet Count 225 K/uL (130-400); RDW Coefficient of Variation 14.9 % (11.5-14.5); RDW Standard Deviation 50.6 fL (36.4-46.3); Red Blood Count 4.13 M/uL (4.7-6.1); White Blood Count 15.37 K/uL (4.8-10.8)
[2020-07-11 06:28] LABS: Calcium 8.5 mg/dl (8.5-10.1); Creatinine Clr Calc Pharmacy 63.9 ml/min; Est GFR (African American) 69.4; Est GFR (Non-African American) 59.9
[2020-07-11] MEDS: CITALOPRAM 40 MG TAB PO SCH (08:44)
[2020-07-11] MEDS: PREGABALIN 100 MG CAP PO SCH ×3 (08:44→21:32)
[2020-07-11] MEDS: QUEtiapine FUMARATE 25 MG TABLET PO SCH ×2 (08:44→21:32)
[2020-07-11] MEDS: INSULIN ASPART 100 UNITS/ML 3 ML PEN SC SCH ×4 (08:44→21:27)
[2020-07-11] MEDS: METOPROLOL SUCC 25MG EXT REL TAB PO SCH (08:44)
[2020-07-11] MEDS: dexAMETHasone 8 MG in SYRINGE 0 ML IV SCH (08:44)
--- NOTE | 2020-07-11 10:26 | Orthopedic Progress Note ---
Date of Service July 11, 2020 Assessment & Plan (1) Neurogenic claudication due to lumbar spinal stenosis: This time continue physical therapy monitor his JOSE operatively discharge home tomorrow. Present on Admission?: Yes Admission and Anticipated Discharge Date Admission Date: July 09, 2020 Subjective Back pain controlled leg pain improved. Physical Exam Physical Exam: Patient is constricted testing was comfortable. Results & Data ([facility]) Vital Signs (Past 12 Hours) Vital Signs Temp Pulse Resp BP Pulse Ox 07/11/20 06:30 37.2 C 76 18 124/77 92 07/10/20 22:32 36.9 C 76 20 140/80 91
[2020-07-11 12:14] LABS: Appearance Urine Clear (Clear); Bacteria Urine Automated 4+ (Negative); Bilirubin Urine Negative (Negative); Blood Urine 2+ (Negative); Color Urine Yellow; Epithelial Cell Urine Auto 0-5 /lpf (0-5); Glucose Urine UA Negative (Negative); Ketones Urine Negative (Negative); Leukocyte Esterase Urine 2+ (Negative); Nitrite Urine Positive (Negative); Protein Urine Negative (Negative); Specific Gravity Urine 1.018 (1.000-1.030); Urobilinogen Urine Negative (Negative); WBC Urine Automated >30 /hpf (0-5)
[2020-07-11] MEDS ORDERED: cefTRIAXone SODIUM 2,000 MG in DEXTROSE 5% 50 ML IV SCH (14:00)
--- NOTE | 2020-07-11 14:27 | Pharmacy Report ---
Pharmacy Glycemic Short Note 2 - Date of Service July 11, 2020 - Glycemic Short BSG Results (Last 24 hours): 07/10/20 07/10/20 07/11/20 16:49 20:59 05:37 Glucose 160 H POC Glucose 173 H 161 H 07/11/20 07/11/20 06:29 12:16 Glucose POC Glucose 161 H 168 H OUTPATIENT ANTIDIABETIC REGIMEN: * metformin ASSESSMENT: 07/11: * Patient received total of 19 units of insulin yesterday, all correctional * Fasting BSG 160 mg/dl - BSGs reasonably controlled despite steroids * Continue with scale for Lantus at HS time PLAN FOR INPATIENT GLYCEMIC CONTROL: * Hold outpatient oral diabetes medications * Basal insulin * Lantus: 0-10 units HS based upon BSG * Bolus insulin * NovoLog per scale ACHS or Q6hrs while NPO * Goal Range: Low 110 mg/dL - High 140 mg/dL * Correction Factor: 20 mg/dL/unit * Nutritional / Prandial insulin per carb ratio of 1 unit per 8 grams CHO consumed PLAN FOR DISCHARGE: * tbd
--- NOTE | 2020-07-11 18:41 | Hospitalist Progress Note ---
Date of Service July 11, 2020 Assessment & Plan (1) Status post lumbar surgery: Lumbar spinal stenosis with radiculopathy S/P L1-L4 decompression & fusion by Dr Mejia POD #2 Acute blood loss anemia-- Expected Pain control, activity, wound care as per primary team Monitor CBC for postop anemia Continue bowel regimen to prevent constipation Incentive spirometry DVT prophylaxis as per Ortho Hb stable Abnormal UA Possible UTI Urine Cx:pending Started on Rocephin [place] DCed (2) CAD (coronary artery disease): S/P CABG Continue metoprolol, aspirin, statin (3) Hypertension: BP stable Continue metoprolol, lisinopril (4) Diabetes mellitus, type 2: A1c: 6.6 Hold metformin Continue insulin therapy while hospitalized Glycemic pharmacist on board Monitor BGs (5) Bipolar disorder: Continue citalopram, seroquel (6) GERD (gastroesophageal reflux disease): continue PPI DVT Px: As per Ortho Code Status Full Code Thank you for this consultation. We will follow the patient with you during their hospital stay. You can reach a member of the [facility] Hospitalist Team 23/10 via pager @ [phone]. Admission and Anticipated Discharge Date Admission Date: July 09, 2020 Subjective Patient is seen and examined at bedside States having dysuria, minimal hematuria Back pain is controlled Denies chest pain, Dyspnea, dizziness, nausea, abdominal pain Review of Systems Review of Systems: All systems reviewed & are unremarkable except as noted in HPI & below Results & Data Results & Data ([facility]) Vital Signs (Past 12 Hours) Vital Signs Temp Pulse Resp BP Pulse Ox 07/11/20 15:00 36.8 C 64 16 127/63 93 Laboratory Results Short CBC 07/11/20 Range/Units 05:37 WBC 15.37 H (4.8-10.8) K/uL Hgb 12.5 L (14.0-18.0) g/dL Hct 37.8 L (42-52) % Plt Count 225 (130-400) K/uL BMP 07/11/20 05:37 Sodium 139 Potassium 4.0 D Chloride 103 Carbon Dioxide 29 BUN 18 Creatinine 1.21 D Glucose 160 H Calcium 8.5 Urine 07/11/20 Range/Units 11:41 Urine Color Yellow Urine Appearance Clear (Clear) Urine pH 7.0 (4.5-7.5) Ur Specific [place] 1.018 (1.000-1.030) Urine Protein Negative (Negative) Urine Glucose (UA) Negative (Negative)
[2020-07-11] MEDS ORDERED: Nursing to Pharmacy Communication SCH (20:00)
[2020-07-11] MEDS: LANTUS PER UNIT CHARGE SQ SCH (21:28)
[2020-07-11] MEDS: ASPIRIN 81 MG ECTAB PO SCH (21:31)
[2020-07-11] MEDS: DOCUSATE SODIUM/SENNA 50/8.6MG TAB PO SCH (21:32)
[2020-07-11] MEDS: PANTOprazole 40 MG TAB PO SCH (21:32)
[2020-07-11] MEDS: ATORVASTATIN 40 MG TAB PO SCH (21:32)
[2020-07-11] MEDS: lisinopril 20 MG TAB PO SCH (21:33)
[2020-07-11] MEDS: EZETIMIBE 10 MG TABLET PO SCH (21:38)
[2020-07-12] MEDS: oxyCODONE HCL IR 5 MG TAB (IMMEDIATE RELEASE) PO PRN ×3 (03:55→12:15)
[2020-07-12 06:20] LABS: Hematocrit (blood only) 35.8 % (42-52); Hemoglobin 11.7 g/dL (14.0-18.0); Mean Corpuscular Hemoglobin 29.8 pg (25-34); Mean Corpuscular Hgb Conc 32.7 g/dL (32-36); Mean Corpuscular Volume 91.3 fL (80-100); Mean Platelet Volume 10.9 fL (7.4-10.4); Platelet Count 181 K/uL (130-400); RDW Coefficient of Variation 14.8 % (11.5-14.5); RDW Standard Deviation 49.9 fL (36.4-46.3); Red Blood Count 3.92 M/uL (4.7-6.1); White Blood Count 12.15 K/uL (4.8-10.8)
[2020-07-12 06:59] LABS: BUN Creatinine Ratio 24.4 (10-20); Calcium 8.3 mg/dl (8.5-10.1); Creatinine Clr Calc Pharmacy 110.5 ml/min; Est GFR (Non-African American) 94.9; Potassium 4.1 mmol/L (3.5-5.1)
[2020-07-12] MEDS: QUEtiapine FUMARATE 25 MG TABLET PO SCH (07:27)
[2020-07-12] MEDS: dexAMETHasone 8 MG in SYRINGE 0 ML IV SCH (07:27)
[2020-07-12] MEDS: METOPROLOL SUCC 25MG EXT REL TAB PO SCH (07:27)
[2020-07-12] MEDS: CITALOPRAM 40 MG TAB PO SCH (07:27)
[2020-07-12] MEDS: PREGABALIN 100 MG CAP PO SCH (07:29)
[2020-07-12] MEDS: INSULIN ASPART 100 UNITS/ML 3 ML PEN SC SCH (07:31)
--- NOTE | 2020-07-12 09:32 | Discharge Summary ---
Date of Service July 12, 2020 Admission HPI Per Admitting Provider This is a 70-year-old male well-known to me the presents with chronic worsening consistent back and bilateral leg pain. After failing course of nonoperative care is here for surgical invention. Principal Diagnosis Lumbar spinal stenosis with neurogenic claudication Discharge Data Allergies Allergy/AdvReac Type Severity Reaction Status Date / Time Penicillins Allergy Mild HIVES Verified 07/09/20 09:43 codeine Allergy Unknown NAUSEA Verified 07/09/20 09:43 WITH DENTAL WORK-HAD SWALLOWED BLOOD hydrochlorothiazide Allergy Unknown FLU LIKE Verified 07/09/20 09:43 SYMPTOMS Consultations 07/09/20 14:49 Consult Hospitalist Routine Procedures Performed Operation Date: 07/09/20 10:35 Actual Procedures p L2-L4 Decompression and Fusion, Spinal Cord Monitoring, Application of Bone Graft, Placement of Interbody L3-L4 - Trey Mejia DO Ordered Studies 07/09/20 10:35 FL fluoroscopy <1hr Routine FL lumbar spine 2-3V Routine Hospital Course (1) Neurogenic claudication due to lumbar spinal stenosis: Patient went lumbar decompression fusion tolerates well second orthopedic for postoperative. Postop day 1 he was up and ambulating progressed to postop day #2 on postop day with 3 JOSE drain decreased probably. Pain well controlled. Excellent strength testing. Subjective discharge home. Discharge orders and instructions from the chart for further review. Total Time Total Time Spent Total Time Spent (In Minutes): 20 minutes Discharge Plan Discharge Items Patient Disposition: Home - Self-Care Reason For Visit: Spinal Stenosis, Lumbar Region without Discharge Diagnosis: Lumbar spinal stenosis with neurogenic claudication Activity: As commented below Non-emergency contact: Primary Care Provider Call non-emergency contact if: you have any medication questions Follow-up/Referrals: Santhosh Demarco DO [Primary Care Provider] - Diet: Regular Addtl Attending Provider Instructions: ACTIVITY RECOMMENDATIONS: SELF CARE INSTRUCTIONS AFTER THORACIC/LUMBAR FUSIONS 1. You may walk to your tolerance. It is good exercise for your legs and back. Expect some back and intermittent leg aches and pains. 2. You may perform "counter-top" level activities (make a sandwich, krystina with a project, etc.). 3. No bending or lifting of more than 10 pounds or back twisting of any nature (roll like a log when turning in bed). 4. You may ride in a car for 20-30 minutes at a time. No driving until after your first visit with your doctor. 5. Frequent changes of position and restricting sitting to 30 minutes at a time will help limit the amount of back spasms and stiffness you may experience. 6. You may discontinue the use of ambulatory aids (cane, crutches, etc.) once your strength and confidence allow. 7. You may cage maker machine the shower and let water strike your incision when you arrive home at least once daily. Do not take a tub bath, sit in a hot tub or go into a swimming pool until after your first recheck in the office. SPECIAL CARE INSTRUCTIONS: VERY IMPORTANT TO READ AND REVIEW A. Your surgical incision has been closed with a cosmetic suture under the skin that will dissolve in about 6 weeks. In 14 days, you can use a pair of clean scissors and cut the suture that is left outside of the skin at the ends of your incision. 1. The small skin tapes can be removed 7 days after surgery if they have not fallen off by that point. 2. You may keep the wound open to air as much as possible to promote healing after post-op day number 5 unless told otherwise by your doctor. 3. If you think the wound looks like it is becoming infected (redness or worsening drainage) and/or you are experiencing fever, chill or worsening back pain and muscle spasms, contact the office so that we may evaluate you as soon as possible. B. Complications are uncommon, but please contact us if you have any signs or symptoms of: 1. wound infection (fever higher than 102.5 degrees F, redness, separation of wound, drainage, or increasing pain from the incision) 2. blood clots in legs (pain, swelling, redness and warmth in legs) 3. urinary tract infection (fever higher than 102.5 degrees F, burning upon urination or increased frequency of urination) 4. nerve problems (inability to walk on your toes or heels, numbness, loss of bowel or bladder control) 5. any other symptoms that concern you C. Please call the office at if you have any concerns or questions about your operation or recovery. D. No smoking! Smoking drastically decreases the chance of a solid fusion. E. Do not take any anti-inflammatory medications (Indocin, Advil, Motrin, Aspirin, Naprosyn, etc.) as these may inhibit the chance of a solid fusion. Tylenol is okay to take for pain. MANAGING PAIN AFTER SPINAL SURGERY 1. Narcotic medication is intended for short-term use and will be provided for surgical pain. Surgical pain usually lasts for a period of 4-6 weeks. Narcotic medication includes Percocet, Vicodin, Darvocet, Tylenol #3 or Lortab. 2. Longer-term pain is more appropriately treated with non-narcotic medication such as Tylenol ES. 3. Muscle spasm is not appropriately treated with narcotics. Muscle relaxers such as Soma, Flexeril or Skelaxin can be used along with Tylenol ES. 4. Remember that we all live with some "aches and pains". This is not unusual or uncommon after an injury or as we get older. a. Back pain is expected and may include muscle spasms for 4 to 6 weeks after surgery. The pain should gradually improve. If the pain worsens for no apparent reason, please contact the office. b. Intermittent leg pain may also be experienced and should not be concerned about unless it worsens for no apparent reason. If so, please contact the office. 5. We will provide appropriate medication within the normal guidelines of their prescribed use. We will also be very cautious and aware of potential abuse and extended duration of patients' medication needs. a. Pain medications are for your comfort and to assist with sleep and rest so that the tissue can heal. They are not provided in order to return to normal activity and should not be used through the day. To do so or worsening pain at night can result from ongoing tissue damage and development of tolerance to the prescribed medicine. 6. Please allow 2-3 days to process refills. Prescriptions will not be mailed but must be picked up at the office. FOLLOW UP VISIT: Keep your scheduled follow-up appointment. Any questions, please call the office at . Pending Studies at Discharge: No Stand-Alone Forms: [employer], Smoking Cessation Medications and [place] Order Prescriptions: New oxycodone 5 mg tablet 5 mg PO Q6H PRN (Reason: pain, severe) Qty: 30 RF: 0 tramadol 50 mg tablet 50 mg PO Q6H PRN (Reason: pain, moderate) Qty: 30 RF: 0 Continued quetiapine 25 mg Tablet 25 mg PO BID RF: 0 methocarbamol 500 mg Tablet 500 mg PO TID PRN (Reason: Spasms) RF: 0 metformin 500 mg Tablet 500 mg PO BID RF: 0 atorvastatin 80 mg Tablet 80 mg PO HS RF: 0 citalopram 40 mg Tablet 40 mg PO QAM RF: 0 lisinopril 20 mg Tablet 20 mg PO PM RF: 0 metoprolol succinate 25 mg Tablet Extended Release 24 Hr 25 mg PO QAM RF: 0 oxycodone 5 mg Tablet 5 mg PO TID PRN (Reason: Pain) RF: 0 ezetimibe 10 mg Tablet 10 mg PO HS RF: 0 pregabalin 100 mg Capsule 100 mg PO TID RF: 0 tramadol 200 mg Tablet Extended Release 24 Hr 200 mg PO PM RF: 0 omeprazole 20 mg Tablet,Delayed Release (Dr/Ec) 20 mg PO HS RF: 0 omega-3 fatty acids [Fish Oil Concentrate] 1,000 mg Capsule 1,000 mg PO QAM RF: 0 aspirin 81 mg Tablet,Delayed Release (Dr/Ec) 81 mg PO PM RF: 0 Discharge Orders: Discharge Order (Routine); Ordered 07/12/20 Ordered By: Trey Harrington/Other Patient Handouts: Managing Type 2 Diabetes, Managing Diabetes: The A1C Test Admission Data Admit Date/Time: 07/09/20 13:37 Attending Provider: Trey Mejia Admit Provider: Trey Mejia Primary Care Provider: Santhosh Demarco V. Other Providers: Flavio Luna
--- NOTE | 2020-07-12 11:24 | Hospitalist Progress Note ---
Date of Service July 12, 2020 Assessment & Plan (1) Status post lumbar surgery: Lumbar spinal stenosis with radiculopathy S/P L1-L4 decompression & fusion by Dr Mejia POD #3 Acute blood loss anemia-- Expected Pain control, activity, wound care as per primary team Monitor CBC for postop anemia Continue bowel regimen to prevent constipation Incentive spirometry DVT prophylaxis as per Ortho Hb stable Possible UTI Urine Cx: Gram-negative bacilli IV Rocephin transition to Omnicef [place] DCed Advised to follow-up with PCP for urine culture results and further adjustment of antibiotics if needed (2) CAD (coronary artery disease): S/P CABG Continue metoprolol, aspirin, statin (3) Hypertension: BP stable Continue metoprolol, lisinopril (4) Diabetes mellitus, type 2: A1c: 6.6 Hold metformin Continue insulin therapy while hospitalized Glycemic pharmacist on board Monitor BGs (5) Bipolar disorder: Continue citalopram, seroquel (6) GERD (gastroesophageal reflux disease): continue PPI DVT Px: As per Ortho Code Status Full Code Thank you for this consultation. We will follow the patient with you during their hospital stay. You can [facility] via pager @ [phone]. Admission and Anticipated Discharge Date Admission Date: July 09, 2020 Subjective Patient is seen and examined at bedside Dysuria, hematuria resolved No new complaints Urine culture growing gram-negative bacilli Back pain is controlled Denies chest pain, Dyspnea, dizziness, nausea, abdominal pain Review of Systems Review of Systems: All systems reviewed & are unremarkable except as noted in HPI & below Physical Exam Physical Exam: Physical Exam: Vitals signs as noted above General Appearance:Obese, no apparent distress Head: normocephalic, Atraumatic Eyes: normal inspection, EOMI Neck: supple, Trachea midline Respiratory/Chest: Normal breath sounds, CTA Cardiovascular: S1, S2, No murmur Abdomen/GI:Soft, Non tender, Bowel sounds present Back: Surgical site in dressing,+ drain Extremities/Musculoskeletal:normal inspection, no edema Neurologic/Psych:AAOX3, grossly no focal neurological deficits Skin: normal color, warm Results & Data Results & Data ([facility]) Vital Signs (Past 12 Hours) Vital Signs Temp Pulse Pulse Resp BP Pulse Ox 07/12/20 09:38 36.7 C 62 81 16 111/79 96 07/12/20 06:33 36.7 C 81 16 111/79 96 Laboratory Results Short CBC 07/12/20 Range/Units 05:27 WBC 12.15 H (4.8-10.8) K/uL Hgb 11.7 L (14.0-18.0) g/dL Hct 35.8 L (42-52) % Plt Count 181 (130-400) K/uL BMP 07/12/20 05:27 Sodium 137 Potassium 4.1 Chloride 104 Carbon Dioxide 29 BUN 17 Creatinine 0.70 D Glucose 131 H Calcium 8.3 L
[2020-07-12] MEDS ORDERED: CEFDINIR 300 MG CAP PO SCH (11:30)
== END 2020-07-12 14:01 | disposition home or self-care (01) | DRG 454 ==
LOC: ASU 08:53 → 3E 13:37